=== PATIENT | male | born 1945 | race Hispanic/Latino ===

== ENCOUNTER 2016-07-15 07:10 | Day surgery (SDC) | payer MEDICARE, OTHER ==
[2016-07-15] MEDS ORDERED: ECOTRIN PO ONE (07:35)
[2016-07-15] MEDS ORDERED: NACL 0.9% 500 ML 500 ML IV SCH (08:00)
[2016-07-15 08:41] LABS: Basophils % (Auto) 0.9 % (0.0-1.8); Eosinophils % (Auto) 2.8 % (0.0-4.3); Hematocrit 40.7 % (35.5-45.6); Hemoglobin 13.7 gm/dl (11.8-15.2); Mean Corpuscular HGB Conc 34 % (32-34); Mean Corpuscular Hemoglobin 33 pg (28-32); Mean Corpuscular Volume 98 fl (84-94); Platelet Count 176 K/mm3 (140-440); Red Blood Count 4.15 M/mm3 (3.65-5.03); Red Cell Distribution Width 13.3 % (13.2-15.2); White Blood Count 5.5 K/mm3 (4.5-11.0)
[2016-07-15 08:56] LABS: INR 1.04 (0.87-1.13)
[2016-07-15] MEDS ORDERED: HEPARIN 10,000 UNITS/10 ML ONE (09:49)
[2016-07-15] MEDS ORDERED: CALAN ONE (09:49)
[2016-07-15 09:56] LABS: Anion Gap 15 mmol/L; BUN/Creatinine Ratio 15.71; Blood Urea Nitrogen 11 mg/dL (9-20); Calcium 9.1 mg/dL (8.4-10.2); Carbon Dioxide 24 mmol/L (22-30); Chloride 99.8 mmol/L (98-107); Glucose 121 mg/dL (75-100); Potassium 3.9 mmol/L (3.6-5.0); Sodium 135 mmol/L (137-145)
[2016-07-15] MEDS ORDERED: HEPARIN/NS 5000 UNIT/500ML(CATH LAB) 500 ML IR ONE (10:10)
[2016-07-15] MEDS: XYLOCAINE 2% INFILTRATI ONE ×2 (10:11→10:35)
[2016-07-15] MEDS: SUBLIMAZE ONE ×2 (10:18→10:33)
[2016-07-15] MEDS: VERSED ONE ×2 (10:18→10:33)
[2016-07-15] MEDS: HEPARIN/NS 5000 UNIT/500ML(CATH LAB) 1,000 ML IR ONE ×2 (10:19→10:35)
--- NOTE | 2016-07-15 11:39 | Cardiac Catherization Report ---
CARDIAC CATHETERIZATION REPORT INDICATION FOR PROCEDURE: A 70-year-old gentleman with history of essential hypertension, hyperlipidemia with known coronary artery disease. He had left internal mammary bypass graft to the LAD on 06/01/2009 by coronary artery bypass grafting x 1. Diagonal vessel was found to be too small to be a good target. Hence, the patient had single vessel revascularisation. Prior to that, the patient has chronic occlusion of the LAD because of symptoms of angina. He underwent cardiac catheterization. The patient also has history of gastritis in the past in addition to history of hiatal hernia. Presently, he is having symptoms of chest pain, recurrent. He has a negative stress thallium in 2013 because of recurrent chest pain. He is being scheduled for cardiac catheterization for definitive diagnosis and treatment. The patient is aware of the procedure, potential complications and alternatives of therapy available. The patient was brought to the catheterization laboratory in a fasting condition. Right groin area was thoroughly cleansed with Betadine solution and sterile drapes were applied. Local anesthesia was achieved using 2% Xylocaine. Right femoral artery puncture was made using 5-[place] micropuncture needle. Subsequently, 6-[place]or[place] sheath was introduced. A 6-[place]or[place] multipurpose catheter was used to obtain the left ventriculogram done in WAY projection followed by angiograms of the right coronary artery and left coronary artery in multiple views. Mammary catheter was used to engage the left internal mammary graft and the angiograms of the left internal mammary graft were obtained at the end of the procedure. Angiograms of the right femoral artery was obtained, when it was felt appropriate 6-[place] Angio-Seal was applied with very good hemostasis. The patient tolerated the procedure well. No untoward complications were noted. No hematoma noted. Following findings were noted on the cardiac catheterization HEMODYNAMICS: 1. Included aortic pressure of 114/70, left ventricular pressure of 114/23. No gradient across the aortic valve. Estimated ejection fraction of 65%. 2. Left ventriculogram done in WAY projection showed normal sized left ventricle with normal contractility. End diastolic and systolic volumes are normal. Right coronary artery and nondominant vessel arises normally from right coronary cusp, angiographically smooth and normal. 3. Left coronary artery arises normally from left coronary cusp, left main without significant disease. LAD is 100% occluded after a small septal branch. Distal LAD is not visualized. Circumflex artery dominant vessel without significant disease. Multiple marginal branches appear to be smooth. 4. Collaterals, none noted. 5. Left internal mammary to the mid LAD is widely patent. LAD itself is patent with competitive flow, probably from the collaterals to the distal LAD. FINAL IMPRESSION: Normal sized left ventricle with normal contractility and nondominant right coronary artery and dominant circumflex artery and its branch are smooth without any significant disease, occluded left anterior descending in the proximal part, which is supplied by widely patent left internal mammary graft. At this time, the patient has normal left ventricular function and well protected by left internal mammary graft with no significant disease elsewhere. Considering the above angiographic pictures, we would continue present risk factor modification and medical therapy, and at this time etiology of his chest pain is not clear, may need to look for other causes because of noncardiac cusp of chest pain. Findings were explained to the patient. Good hemostasis was achieved with Angio-Seal placement. JOB# [id number] CARISSA/ALEXANDRO DANIELLE
[2016-07-15 14:29] VITALS: BP 123/78
--- NOTE | 2016-07-16 16:04 | Short Stay Summary ---
Short Stay Documentation Date of service: 07/15/16 - History H&P: obtained from office - Allergies and Medications Current Medications: Allergies No Known Allergies Allergy (Verified 07/15/16 07:33) Home Medications Medication Instructions Recorded Confirmed Last Taken Type Alfuzosin HCl [Alfuzosin HCl ER] 10 mg PO DAILY 07/15/16 07/15/16 07/14/16 History 10mg Aspirin EC [Aspirin Enteric Coated 81 mg PO DAILY 07/15/16 07/15/16 07/14/16 History TAB] 81mg Esomeprazole Magnesium [NexIUM] 40 mg PO QDAY 07/15/16 07/15/16 07/14/16 History 40mg Finasteride [Finasteride] 5 mg PO DAILY 07/15/16 07/15/16 07/14/16 History 5mg Gabapentin [Gabapentin] 300 mg PO DAILY 07/15/16 07/15/16 07/08/16 History 300mg Krill Oil [Krill Oil] 500 mg PO DAILY 07/15/16 07/15/16 07/13/16 History 500mg Lisinopril [Lisinopril] 5 mg PO DAILY 07/15/16 07/15/16 07/14/16 History 2100 Metformin HCl [metFORMIN ER] 500 mg PO DAILY 07/15/16 07/15/16 07/14/16 History 500mg Metoprolol Succinate [Toprol Xl] 25 mg PO DAILY 07/15/16 07/15/16 07/15/16 06: 00 History Nitroglycerin [Nitrostat] 0.4 mg SL PRN PRN 07/15/16 07/15/16 Unknown History Rosuvastatin (Nf) [Crestor] 10 mg PO DAILY 07/15/16 07/15/16 07/14/16 21:00 History 10mg cycloSPORINE [Restasis 0.05%] 1 drop INTRAOCULA BID 07/15/16 07/15/16 07/14/16 History 1 drop - Brief post op/procedure progress note Date of procedure: 07/15/16 Pre-op diagnosis: chest pain Procedure: left heart cath - Hospital course Hospital course: Please see dictated cath report. - Disposition Condition at discharge: Stable Disposition: DISCHARGED TO HOME OR SELFCARE - Discharge Diagnoses (1) Chest pain Status: Acute Qualifiers: Chest pain type: C (2) CAD (coronary artery disease) Status: Chronic Qualifiers: Coronary Disease-Associated Artery/Lesion type: C [place] vs. transplanted heart: N Associated angina: A (3) Hx of CABG Status: Chronic (4) Hypertension Status: Chronic Qualifiers: Hypertension type: H (5) Hyperlipidemia Status: Chronic Qualifiers: Hyperlipidemia type: H Short Stay Discharge Plan Activity: advance as tolerated Weight Bearing Status: Weight Bear as Tolerated Diet: low fat, low cholesterol Wound: keep clean and dry Follow up with: SHIRLEY AHN MD [Primary Care Provider] - 7 Days Forms: CardCath PCI D/C Instructions
== END 2016-07-15 14:20 | disposition home or self-care (01) ==
LOC: OPU 07:10
PROVIDERS: ATTEND Internal Medicine
DX: I25.10 Atherosclerotic heart disease of native coronary artery without angina pectoris (principal); I10 Essential (primary) hypertension; E78.5 Hyperlipidemia, unspecified; E11.9 Type 2 diabetes mellitus without complications; Z85.46 Personal history of malignant neoplasm of prostate; Z95.1 Presence of aortocoronary bypass graft
CPT/HCPCS: 36415; 80048; 85025; 85610; 85730; 93005; 93010; 93459; C1760; C1769; C1894; J1644; J2250; J3010; J7040; Q9967